=== PATIENT | female | born 1980 | race Caucasian/White ===

== ENCOUNTER 2017-03-11 19:14 | Emergency (ER) | payer OTHER ==
--- NOTE | 2017-03-11 21:18 | ED ORDER SUMMARY ---
..... Patient: NAYE CASTELLANO OrderSheet [facility] VisitID: [id number] [place] [address] 36y, F Registration Date/Time: 03/11/2017 ORDER SHEET Weight: 117.9 kg (stated) Allergies: Amoxicillin, Zithromax GENERAL ORDERS: EKG - ER Stat (19:28 03/11/2017 Reji per protocol) (k 19:37 [facility] ER Cosmetic Sales Assistant) (19:47 Shanita) MEDICATION ORDERS: IV FLUIDS: ORDER SHEET NOTES: [Electronically signed by Allison Patel (21:36 03/11/2017)] [Electronically signed by Mandy Rebollar (22:30 03/11/2017)] [Electronically locked/signed by Allison Patel (21:36 03/11/2017)]
--- NOTE | 2017-03-11 21:18 | ED NURSING NOTES ---
Clinical Report - Nurses [facility] [address] [place] [address] 03/11/2017 19:16 Patient: NAYE CASTELLANO TRIAGE Triage time 19:Mar 11 2017. Acuity: LEVEL 3. Chief Complaint: CHEST DISCOMFORT and (Palpation). 19:36 03/11/17. Alert. No acute distress. SEPSIS SCREEN: Sepsis Screen. Negative (no infection suspected/documented). COURTNEY COMA SCORE: Courtney Coma Scale: 15- eyes open spontaneously (4); best verbal response- oriented x 4 (5); best motor response- obeys commands (6). --19:36 Allison Patel 19:36 03/11/17. BP: 162/81. HR: 81. RR: 17. O2 saturation: 99%. Temp: 98.2 F. Pain level now 0/10. --19:36 Allison Patel. Weight: 117.9 kg stated. Height/Length: 69 inches Per Patient. BMI: 38.4. --19:34 Allison Patel. Medications Levoxyl Oral 225 mcg, daily. --19:32 Allison Patel Poly-Iron 150 Oral. --19:32 Allison Patel. Medication/allergy information source: the patient. --19:36 Allison Patel. Allergies Amoxicillin. Possible (heart palpitations) --19:32 Allison Patel Zithromax. (heart palpitations) --19:32 Allison Patel. History Arrived by private vehicle. Historian: patient. Accompanied by mother. Primary physician ([facility]). This started just prior to arrival. ( Patient reports that she had some heart palpitations today. Reports a history of palpitations that she has been evaluated by the rn advice for and wore a halter monitor. Reports she had EKG that was done at [facility] and reports no changes. Also has thyroid issues that she takes medication for. Denies CP, but did have some SOB "kind of." Pt presents today for lengthened episode of palpitations compared to what she's experienced before.). She has had difficulty breathing and nausea. No vomiting. Treatment FLUTE POLISHER: None. PAST MEDICAL HX: No history of diabetes mellitus. Last normal menstrual period was 3 weeks ago. Denies current . Immunizations not up to date. SOCIAL HX: Never smoker. No alcohol use or drug use. FALL RISK ASSESSMENT: Fall risk assessment completed. No fall risk identified. NUTRITIONAL RISK ASSESSMENT: The nutritional risk assessment revealed no deficiencies. FUNCTIONAL ASSESSMENT: Functional assessment: no impairments noted. LEARNING NEEDS ASSESSMENT: The learning needs assessment revealed no barriers. SKIN INTEGRITY ASSESSMENT: Skin integrity risk assessment completed. No skin integrity risk identified. --19:36 Allison Patel. PROBLEMS: Palpitations. Chest Wall Pain. Ciliac disease. Dizziness. Hypothyroidism. Gastroesophageal Reflux Disease. Hypertension. Iron deficiency. Anxiety Reaction. Dysuria. Thyroid Disease. --19:33 Allison Patel. ADDITIONAL SURGERIES: . Tubal Ligation. --19:33 Allison Patel. Assessment The patient states feels the same. --19:36 Allison Patel. Interventions ID band on patient. --19:36 Allison Patel. PHYSICAL ASSESSMENT 19:36 03/11/17. Ambulatory to room. Patient gowned. GENERAL / NEURO / PSYCH: Alert. Oriented X 4. Appears in no acute distress. HEENT: Mucous membranes are pink. RESPIRATORY: Respirations not labored. Chest nontender. CVS: Normal sinus rhythm noted. Pulses within normal limits. Capillary refill less than 2 seconds. GI / : Abdomen soft and nontender. EXTREMITIES: No lower extremity edema. SKIN: Skin is warm and dry. Normal skin turgor. Skin is non-tender. --19:36 Allison Patel. NURSING PROGRESS NOTES 19:36 03/11/17. The plan of care for this patient has been created. ribbon cutter, pulse oximeter and NIBP monitor placed on patient; regular senior care provider- Lead II and V5; monitor alarms on. Patient gowned. Head of bed elevated. Reassurance given. Two patient identifiers checked. Call light placed in reach. Side rails up x 1. Bed placed in lowest position. Brakes of bed on. Patient ready for evaluation- chart flagged and ED physician and PLASTIC DIE MAKER APPRENTICE notified. --19:36 Allison Patel EKG time: (1939). EKG was ordered, performed by a tech and shown to the ED physician. --19:48 Brenda Doll. DISPOSITION / DISCHARGE 21:34 03/11/17. Departure time: 21:34 Mar 11 2017. Condition at departure: improved. The goals identified in the patient's plan of care were met. No learning barriers present. Discharge instructions provided and reviewed with the patient. Reviewed warnings (Patient verbalized understanding of warning s/sx listed in dc paperwork.). Treatments reviewed. Reviewed referral to a primary care physician for followup. Patient verbalized understanding. Written instructions provided in Hungarian. The patient was discharged by the nurse practitioner. She was discharged home and unaccompanied at time of discharge. She left the Emergency Department ambulatory and via private vehicle. Patient driving. FALL RISK ASSESSMENT: Fall risk assessment completed. No fall risk identified. COURTNEY COMA SCORE: Courtney Coma Scale: 15- eyes open spontaneously (4); best verbal response- oriented x 4 (5); best motor response- obeys commands (6). --21:34 Allison Patel 21:33 03/11/17. BP: 121/73. HR: 83. RR: 16. O2 saturation: 100% on room air. Pain level now: 0/10. --21:34 Allison Patel. Locked/Released at 03/11/2017 21:36 by Allison Patel,
--- NOTE | 2017-03-11 21:18 | ED NURSING NOTES ---
Clinical Report - Nurses [facility] [address] [place] [address] 03/11/2017 19:16 Patient: NAYE CASTELLANO TRIAGE Triage time 19:Mar 11 2017. Acuity: LEVEL 3. Chief Complaint: CHEST DISCOMFORT and (Palpation). 19:36 03/11/17. Alert. No acute distress. SEPSIS SCREEN: Sepsis Screen. Negative (no infection suspected/documented). COURTNEY COMA SCORE: Courtney Coma Scale: 15- eyes open spontaneously (4); best verbal response- oriented x 4 (5); best motor response- obeys commands (6). --19:36 Allison Patel 19:36 03/11/17. BP: 162/81. HR: 81. RR: 17. O2 saturation: 99%. Temp: 98.2 F. Pain level now 0/10. --19:36 Allison Patel. Weight: 117.9 kg stated. Height/Length: 69 inches Per Patient. BMI: 38.4. --19:34 Allison Patel. Medications Levoxyl Oral 225 mcg, daily. --19:32 Allison Patel Poly-Iron 150 Oral. --19:32 Allison Patel. Medication/allergy information source: the patient. --19:36 Allison Patel. Allergies Amoxicillin. Possible (heart palpitations) --19:32 Allison Patel Zithromax. (heart palpitations) --19:32 Allison Patel. History Arrived by private vehicle. Historian: patient. Accompanied by mother. Primary physician ([facility]). This started just prior to arrival. ( Patient reports that she had some heart palpitations today. Reports a history of palpitations that she has been evaluated by the fiberglass finisher for and wore a halter monitor. Reports she had EKG that was done at [facility] and reports no changes. Also has thyroid issues that she takes medication for. Denies CP, but did have some SOB "kind of." Pt presents today for lengthened episode of palpitations compared to what she's experienced before.). She has had difficulty breathing and nausea. No vomiting. Treatment SILK SOAKER: None. PAST MEDICAL HX: No history of diabetes mellitus. Last normal menstrual period was 3 weeks ago. Denies current . Immunizations not up to date. SOCIAL HX: Never smoker. No alcohol use or drug use. FALL RISK ASSESSMENT: Fall risk assessment completed. No fall risk identified. NUTRITIONAL RISK ASSESSMENT: The nutritional risk assessment revealed no deficiencies. FUNCTIONAL ASSESSMENT: Functional assessment: no impairments noted. LEARNING NEEDS ASSESSMENT: The learning needs assessment revealed no barriers. SKIN INTEGRITY ASSESSMENT: Skin integrity risk assessment completed. No skin integrity risk identified. --19:36 Allison Patel. PROBLEMS: Palpitations. Chest Wall Pain. Ciliac disease. Dizziness. Hypothyroidism. Gastroesophageal Reflux Disease. Hypertension. Iron deficiency. Anxiety Reaction. Dysuria. Thyroid Disease. --19:33 Allison Patel. ADDITIONAL SURGERIES: . Tubal Ligation. --19:33 Allison Patel. Assessment The patient states feels the same. --19:36 Allison Patel. Interventions ID band on patient. --19:36 Allison Patel. PHYSICAL ASSESSMENT 19:36 03/11/17. Ambulatory to room. Patient gowned. GENERAL / NEURO / PSYCH: Alert. Oriented X 4. Appears in no acute distress. HEENT: Mucous membranes are pink. RESPIRATORY: Respirations not labored. Chest nontender. CVS: Normal sinus rhythm noted. Pulses within normal limits. Capillary refill less than 2 seconds. GI / : Abdomen soft and nontender. EXTREMITIES: No lower extremity edema. SKIN: Skin is warm and dry. Normal skin turgor. Skin is non-tender. --19:36 Allison Patel. NURSING PROGRESS NOTES 19:36 03/11/17. The plan of care for this patient has been created. nurse monitoring, pulse oximeter and NIBP monitor placed on patient; cardiac catheterization technologist- Lead II and V5; monitor alarms on. Patient gowned. Head of bed elevated. Reassurance given. Two patient identifiers checked. Call light placed in reach. Side rails up x 1. Bed placed in lowest position. Brakes of bed on. Patient ready for evaluation- chart flagged and ED physician and LACTATION CONSULTANT notified. --19:36 Allison Patel EKG time: (1939). EKG was ordered, performed by a tech and shown to the ED physician. --19:48 Brenda Doll. DISPOSITION / DISCHARGE 21:34 03/11/17. Departure time: 21:34 Mar 11 2017. Condition at departure: improved. The goals identified in the patient's plan of care were met. No learning barriers present. Discharge instructions provided and reviewed with the patient. Reviewed warnings (Patient verbalized understanding of warning s/sx listed in dc paperwork.). Treatments reviewed. Reviewed referral to a primary care physician for followup. Patient verbalized understanding. Written instructions provided in Hungarian. The patient was discharged by the nurse practitioner. She was discharged home and unaccompanied at time of discharge. She left the Emergency Department ambulatory and via private vehicle. Patient driving. FALL RISK ASSESSMENT: Fall risk assessment completed. No fall risk identified. COURTNEY COMA SCORE: Courtney Coma Scale: 15- eyes open spontaneously (4); best verbal response- oriented x 4 (5); best motor response- obeys commands (6). --21:34 Allison Patel 21:33 03/11/17. BP: 121/73. HR: 83. RR: 16. O2 saturation: 100% on room air. Pain level now: 0/10. --21:34 Allison Patel. Locked/Released at 03/11/2017 21:36 by Allison Patel,
--- NOTE | 2017-03-11 21:18 | ED CLINICAL REPORT ---
Clinical Report - Physicians/Mid Levels [facility] [address] [place] [address] 03/11/2017 19:16 Patient: NAYE CASTELLANO Time Seen: 1951; initial patient contact, initial documentation, patient care assumed. Arrived- By private vehicle. Historian- patient. HISTORY OF PRESENT ILLNESS Chief Complaint: PALPITATIONS. It is described as an irregular heart beat. She did not feel like might "pass out". Is now gone. Onset during rest. No history of caffeine use prior to onset, decongestants use prior to onset, cocaine use prior to onset or amphetamine use prior to onset. Modifying factors. Not worsened by anything. Not relieved by anything. No chest pain or discomfort, difficulty breathing, sweating episodes or fainting episodes. No dizziness. Similar symptoms previously: Frequently, as bad. Recent medical care: The patient was seen recently at another facility in the emergency department. ( [facility] thing, exam normal). REVIEW OF SYSTEMS No fever or cough. All systems otherwise negative, except as recorded above. PAST HISTORY See nurses notes. PROBLEMS: Palpitations. Chest Wall Pain. Ciliac disease. Dizziness. Hypothyroidism. Gastroesophageal Reflux Disease. Hypertension. Iron deficiency. Anxiety Reaction. Dysuria. Thyroid Disease. --19:33 Allison Patel. ADDITIONAL SURGERIES: . Tubal Ligation. --19:33 Allison Patel. SOCIAL HISTORY Never smoker. No alcohol use or drug use. No recent travel. Is a local resident. FAMILY HISTORY Negative. ADDITIONAL NOTES The nursing notes have been reviewed with agreement regarding the chief complaint, HPI, ROS, PMH and patient medications and allergies. PHYSICAL EXAM Vital Signs: 03/11/2017 19:36 BP: 162/81. HR: 81. RR: 17. O2 saturation: 99%. Temp: 98.2 F. Have been reviewed as normal and appear to be correct. Appearance: Alert. Oriented X3. No acute distress. Eyes: Pupils equal, round and reactive to light. Eyes normal inspection. Neck: Normal inspection. Neck supple. CVS: Normal heart rate and rhythm. Heart sounds normal. Pulses normal. Respiratory: No respiratory distress. Breath sounds normal. Chest nontender. Abdomen: Moderately obese. Back: Normal external inspection. Skin: Skin warm and dry. Normal skin color. No rash. Normal skin turgor. Extremities: Extremities exhibit normal ROM. No lower extremity edema. Neuro: Oriented X 3. No motor deficit. No sensory deficit. LABS, X-RAYS, AND EKG EKG: EKG time: (1941). No acute process. No acute ischemia. Normal EKG. Rate: 77. Normal EKG. The study has been interpreted contemporaneously by me (and Dr Warren). The EKG appears to be a good tracing. PROGRESS AND PROCEDURES Patient counseled in person regarding the patient's stable condition, test results and diagnosis. 2119. Differential Diagnosis: Other possible considerations: palpitations, substance abuse, anxiety, thyroid storm, pvc, afib, aflutter. Above considerations are based on history, physical exam, reassessment and EKG. Differential diagnosis was discussed with patient. Disposition: Discharged home in good and improved condition (21:18). Condition: good and stable. CLINICAL IMPRESSION Palpitations INSTRUCTIONS Warnings: GENERAL WARNINGS: Return or contact your physician immediately if your condition worsens or changes unexpectedly, if not improving as expected, or if other problems arise. SPECIFICALLY, return if you develop chest, neck, jaw, shoulder, arm, or back pain, difficulty breathing, a fluttering sensation in your chest, lightheadedness, fainting, excessive fatigue, or sudden sweating. Follow-up: Follow up with your doctor in about two days even if well. Call for an appointment. Summary of care provided to patient. Understanding of the discharge instructions verbalized by patient. (Electronically signed by Mandy Rebollar A.R.N.P. 03/11/2017 22:30)
--- NOTE | 2017-03-11 21:18 | ED ORDER SUMMARY ---
..... Patient: NAYE CASTELLANO OrderSheet [facility] VisitID: [id number] [place] [address] 36y, F Registration Date/Time: 03/11/2017 ORDER SHEET Weight: 117.9 kg (stated) Allergies: Amoxicillin, Zithromax GENERAL ORDERS: EKG - ER Stat (19:28 03/11/2017 Reji per protocol) (k 19:37 [facility] ER Gift Manager) (19:47 Shanita) MEDICATION ORDERS: IV FLUIDS: ORDER SHEET NOTES: [Electronically signed by Allison Patel (21:36 03/11/2017)] [Electronically signed by Mandy Rebollar (22:30 03/11/2017)] [Electronically locked/signed by Allison Patel (21:36 03/11/2017)]
--- NOTE | 2017-03-11 22:30 | ED DISCHARGE INSTRUCTIONS ---
Patient: NAYE CASTELLANO General Instructions [facility] VisitID: [id number] [place] [address] 36y, F Registration Date/Time: 03/11/2017 Palpitations INSTRUCTIONS Warnings: GENERAL WARNINGS: Return or contact your physician immediately if your condition worsens or changes unexpectedly, if not improving as expected, or if other problems arise. SPECIFICALLY, return if you develop chest, neck, jaw, shoulder, arm, or back pain, difficulty breathing, a fluttering sensation in your chest, lightheadedness, fainting, excessive fatigue, or sudden sweating. Follow-up: Follow up with your doctor in about two days even if well. Call for an appointment. Summary of care provided to patient. Understanding of the discharge instructions verbalized by patient. ADDITIONAL INFORMATION Heart Palpitations Palpitations refers to the feeling that your heart is beating hard, fast or irregular. Some people describe it as "pounding" or "skipped beats". Palpitations may occur in persons with heart disease, but can also occur in healthy persons. Heart-Related Causes: Arrhythmia (a change from the heart's normal rhythm) Disease of the heart valves [id number] Causes: Certain medicines (such as asthma inhalers and decongestants) Some herbal supplements, energy drinks and pills, and weight loss pills Illegal stimulant drugs (such as cocaine, crank, methamphetamine, PCP) Caffeine, alcohol and tobacco Medical conditions such as thyroid disease, anemia, anxiety and panic disorder Sometimes the cause cannot be found. Home Care: Avoid excess caffeine, alcohol, tobacco and any stimulant drugs. Tell your doctor about any prescription or ozwm-dlp-[id number] or herbal medicines you take. Follow Up with your doctor or as advised by our staff. Get Prompt Medical Attention if any of the following occur together with palpitations: Weakness, dizziness, light-headed or fainting Chest pain or shortness of breath Rapid heart rate (over 120 beats per minute, at rest) Palpitations that lasts over 20 minutes Weakness of an arm or leg or one side of the face Difficulty with speech or vision Arrhythmia Electrical impulses cause the normal heart to beat 60 to 100 times a minute. These impulses come from a natural pacemaker deep inside the heart muscle. Each impulse causes the heart muscle to contract. This causes the blood to flow through the heart and out to the tissues and organs of your body. An arrhythmia is a change from the normal speed or pattern of these electrical impulses. This can cause the heart to beat too fast (tachycardia); or too slow (bradycardia); or in an unsteady pattern (irregular rhythm). Symptoms of arrhythmias Different people experience arrhythmias differently. Sometimes they may not have symptoms, but just notice a change in their pulse. Symptoms can include: Fluttering feeling in the chest Shortness of breath Chest pain or pressure Lightheadedness or dizziness Fainting or nearly fainting Palpitations Tiredness, fatigue, or weakness Causes of arrhythmias Arrhythmias are most often due to heart disease such as: Coronary artery disease (arteriosclerosis) Disease of the heart valves Enlarged heart High blood pressure Heart failure Other causes ofarrhythmia include: Certain medicines (such as asthma inhalers and decongestants) Some herbal supplements Cardiac stimulant drugs (such as cocaine, amphetamine, diet pills, certain decongestant cold medicines, caffeine, and nicotine) Excessive alcohol use Medical conditions such as thyroid disease, anemia, anxiety, and panic disorder Arrythmias can often be prevented. The cause and type of arrhythmia determines the best treatment. Sometimes your doctor may want to monitor your heart rate over a 24-hour period or longer. This can help identify the cause of your arrhythmia and find the best treatment. This can be done with a Holter monitor,a portable EKG recording device attached by wires to your chest. You can carry this with you as you perform your routine activities during the monitoring period. Home care Avoid cardiac stimulants (such as cocaine, amphetamine, diet pills, certain decongestant cold medicines, caffeine, and nicotine). If you smoke, stop smoking. Contact your doctor or a local stop-smoking program for help. Tell your doctor about any prescription, njmi-pdf-wysiwdc or herbal medicines you take. These may be affecting your heart rhythm. Follow-up care Follow up with your health care provider or as advised by our staff. If a Holter monitor has been recommended, contact the cardiologistyou have been referred toas soon as you canpick up the device. Other outpatient tests may also be arranged for you at that time. Call 911 This is the fastest and safest way to get to the emergency department. The paramedics can also start treatment on the way to the hospital, if needed. Don'twait until your symptoms are severe to call 911. Other reasons to call 911 besides chest pain include: Chest, shoulder, arm, neck, or back pain Shortness of breath Feeling lightheaded, faint, or dizzy Rapid heart beat Slower than usual heart rate compared to your normal Angina withweakness, dizziness, fainting, heavy sweating, nausea, or vomiting Extreme drowsiness, or confusion Weakness of an arm or leg or one side of the face Difficulty with speech or vision When to seek medical care Remember, things are not always like they are on TV. Sometimes it is not so obvious. You may only feel weak or just "not right." If it is not clear or if you have any doubt, call for advice. Seek help for chest pain, or it feels different from usual, even if your symptoms are mild. Do not drive yourself. Have someone else drive. If no one can drive you, call 911. If your doctor has given you medicines to take when you have symptoms, take them, but do not delay getting help while trying to find them. Do not delay. Fast diagnosis and treatment can prevent or limit the amount of heart damage during a heart attack or stroke. Do not go to your doctor's ofice or a clinic because they will not be able to provide all of the testing or treatment required for this condition. You have been given the following additional information: Palpitations Arrhythmia, Unspecified (Electronically signed by Mandy Rebollar A.R.N.P. 03/11/2017 22:30)
--- NOTE | 2017-03-11 22:30 | ED MAR SUMMARY ---
..... Medication Administration Record [facility] [address] [place], [place] [id number] Patient: NAYE CASTELLANO Visit ID: [id number] 36y, F Weight: 117.9 kg Height/Length: 69 in BMI: 38.4 ALLERGIES: Zithromax, Amoxicillin
--- NOTE | 2017-03-11 22:30 | ED MED RECONCILIATION SUMMARY ---
Patient: NAYE CASTELLANO Medication Reconciliation Report [facility] VisitID: [id number] [address] [place] [place] [address] 36[place], F Registration Date/Time: 03/11/2017 Weight: 117.9 kg Height/Length: 69 in. BMI: 38.4 ALLERGIES: Amoxicillin, Zithromax The patient's Home Medications are listed below: THE FOLLOWING MEDICATIONS NEED TO BE RECONCILED: Levoxyl Oral 225 mcg, daily Poly-Iron 150 Oral The source(s) of the original Home Medication information: patient The following Medications were given to the patient in the Emergency Department: None. The following Medications were prescribed to the patient: None.
--- NOTE | 2017-03-11 22:30 | ED MAR SUMMARY ---
..... Medication Administration Record Merged With [facility] [address], [place] [id number] Patient: NAYE CASTELLANO Visit ID: [id number] 36y, F Weight: 117.9 kg Height/Length: 69 in BMI: 38.4 ALLERGIES: Zithromax, Amoxicillin
--- NOTE | 2017-03-11 22:30 | ED MED RECONCILIATION SUMMARY ---
Patient: NAYE CASTELLANO Medication Reconciliation Report [facility] VisitID: [id number] [address] [place] [address] 36y, F Registration Date/Time: 03/11/2017 Weight: 117.9 kg Height/Length: 69 in. BMI: 38.4 ALLERGIES: Amoxicillin, Zithromax The patient's Home Medications are listed below: THE FOLLOWING MEDICATIONS NEED TO BE RECONCILED: Levoxyl Oral 225 mcg, daily Poly-Iron 150 Oral The source(s) of the original Home Medication information: patient The following Medications were given to the patient in the Emergency Department: None. The following Medications were prescribed to the patient: None.
== END 2017-03-11 21:35 | disposition home or self-care (01) ==
LOC: ED SRH 19:14
DX: R00.2 Palpitations (principal); E03.9 Hypothyroidism, unspecified; K21.9 Gastro-esophageal reflux disease without esophagitis; I10 Essential (primary) hypertension; Z79.899 Other long term (current) drug therapy; Z88.0 Allergy status to penicillin; Z88.1 Allergy status to other antibiotic agents